=== PATIENT | female | born 1990 | race Caucasian/White ===

== ENCOUNTER → 2019-01-29 08:05 | Outpatient (CLI) | payer SELFPAY ==
[2018-12-26 11:04] VITALS: BMI 31.6
--- NOTE | 2019-01-29 08:15 | US_ITS ---
STUDY: SECOND AND THIRD TRIMESTER OBSTETRICAL ULTRASOUND REASON FOR EXAM: Female, 28 years old. Routine survey. LMP: September 08, 2018. TECHNIQUE: Transabdominal TECHNICAL QUALITY: Adequate. PRIOR ULTRASOUND: None. FINDINGS: There is a single intrauterine fetus. The fetus is in a cephalic presentation. There is demonstrated cardiac activity with a heart rate of 152 bpm. There is a normal amniotic fluid volume. The largest amniotic fluid pocket measures 4.5 cm x 3.7 cm. The amniotic fluid index (NATHAN) is within normal limits. The placenta is posterior in location and is not low lying. There are Grade 0 placental changes. The cervix measures 4.3 cm in length. The bilateral adnexal regions are normal. BIOMETRY: BPD: 5.1 cm: 21 weeks, 4 days HC: 19.52 cm: 21 weeks, 6 days AC: 17.38 cm: 22 weeks, 3 days FL: 3.75 cm: 22 weeks, 0 days CI: 79% FL/BPD: 74% FL/HC: FL/AC: 22% HC/AC: 1.12 age by current US: 22 weeks, 0 days. TITI by current US: June 04, 2019. Estimated weight: 475 grams, +/- 69 grams, 98 %. Age by LMP: 20 weeks, 3 days. TITI by LMP: June 15, 2019. ANATOMY: Gender: Cranium: Normal lateral ventricles. Normal choroid plexus. Normal cerebellum. Normal cisterna magna. Normal face, nose and lips. Chest: Normal 4-chamber heart. Abdomen/Pelvis: Normal diaphragm. Normal stomach. Normal abdominal wall. Normal cord insertion. Normal 3 vessel cord. Normal kidneys. Normal bladder. Spine: Normal cervical spine. Normal thoracic spine. Normal lumbar spine. Normal sacrum. Extremities: Normal bilateral upper extremities. Normal bilateral lower extremities. US/OB Anatomy Scan IMPRESSION: Single live intrauterine gestation with a mean gestational age of 22 weeks. Electronically Signed: Oscar Cuevas, at 9:20 EDT , Service support ,
[2019-01-29 23:11] LABS: Chlamydia Trachomatis by PCR Negative (Negative); Neisserai gonorrhoeae by PCR Negative (Negative); Probe Check PASS; Sample Adequacy Control PASS; Specimen Processing Control PASS
== END ==
PROVIDERS: Referring Provider Obstetrics & Gynecology; Visit Provider Obstetrics & Gynecology
DX: O09.90 Supervision of high risk pregnancy, unspecified, unspecified trimester (principal)
CPT/HCPCS: 76805; 87491; 87591

== ENCOUNTER → 2019-03-23 | Outpatient (CLI) | payer SELFPAY ==
[2019-03-23 14:38] VITALS: BMI 33.1
[2019-03-23 15:25] LABS: Absolute Lymphocyte Count 1.63 X10^3/ul (0.83-4.51); Absolute Neutrophil Count 6.2 X10^3/uL (2.0-7.7); Basophil# 0.02 X10^3/uL; Basophil% 0.2 % (0-1); Eosinophil# 0.08 X10^3/uL; Eosinophils% 0.9 % (0-5); Hematocrit 32.4 % (37-47); Lymphocyte # 1.63 X10^3/ul (4.0); Lymphocyte % 19.1 % (19-41); Mean Corpuscular Hgb 28.4 pg (27.0-32.0); Mean Corpuscular Volume 83.5 fL (81-99); Mean Platelet Vol. 9.7 fl (6.2-12.0); Monocyte# 0.58 X10^3/uL; Monocyte% 6.8 % (0-10); Neutrophil # 6.19 X10^3/uL (2.7-7.7); Neutrophil % 72.8 % (47-70); Platelet Count 159 K/mm3 (150-450); RBC Distribution Width CV 13.7 % (11.6-14.6); RBC Distribution Width SD 41.9 fl (35.1-43.9); Red Blood Count 3.88 M/mm3 (4.2-5.4); White Blood Count 8.5 K/mm3 (4.4-11.0)
[2019-03-23 15:27] LABS: POSITIVE COUNT NO; POSITIVE DIFFERENTIAL NO; POSITIVE MORPHOLOGY NO
[2019-03-23 15:38] LABS: Glucose Challenge Gest 1H 50g 135 mg/dL (70-140)
[2019-03-23 16:34] LABS: HIV - WCH Non-Reactive (Nonreactive); Rubella IgG 288.8 IU/mL
[2019-03-26 09:48] LABS: HEPATITIS B SURFACE AG Negative (Negative)
[2019-03-30 03:31] LABS: Rapid Plasmin Reagin (RPR) NONREACTIVE (NONREACTIVE)
== END | disposition home or self-care (01) ==
LOC: LAB 14:47
PROVIDERS: Referring Provider Obstetrics & Gynecology; Visit Provider Obstetrics & Gynecology
DX: O09.90 Supervision of high risk pregnancy, unspecified, unspecified trimester (principal); Z3A.28 28 weeks gestation of pregnancy
CPT/HCPCS: 36415; 82950; 85025; 86592; 86703; 86762; 86850; 86900; 87340

== ENCOUNTER → 2019-04-09 | Outpatient (CLI) | payer SELFPAY ==
[2019-03-23 14:38] VITALS: BMI 33.1
[2019-04-09 08:11] LABS: Glucose GTT-Gestation. Fasting 89 mg/dL (<105)
[2019-04-09 09:07] LABS: Glucose GTT-Gestational 1 Hr 158 mg/dL (<190)
[2019-04-09 10:47] LABS: Glucose GTT-Gestational 2 Hr 141 mg/dL (<165)
[2019-04-09 11:16] LABS: Glucose GTT-Gestational 3 Hr 86 L (<145)
[2019-04-09 18:20] LABS: Chlamydia Trachomatis by PCR Negative (Negative); Neisserai gonorrhoeae by PCR Negative (Negative); Probe Check PASS; Sample Adequacy Control PASS; Specimen Processing Control PASS
== END | disposition home or self-care (01) ==
PROVIDERS: Nurse Practitioner Women's Health; Referring Provider Obstetrics & Gynecology; Visit Provider Obstetrics & Gynecology
DX: O99.810 Abnormal glucose complicating pregnancy (principal); O09.93 Supervision of high risk pregnancy, unspecified, third trimester; Z3A.00 Weeks of gestation of pregnancy not specified
CPT/HCPCS: 36415; 82951; 82952; 87491; 87591

== ENCOUNTER → 2019-05-04 | Outpatient (CLI) | payer SELFPAY ==
[2019-05-04 09:36] VITALS: BMI 33.1
== END | disposition home or self-care (01) ==
LOC: LABSPEC 16:18
PROVIDERS: Referring Provider Obstetrics & Gynecology; Visit Provider Obstetrics & Gynecology
DX: O09.93 Supervision of high risk pregnancy, unspecified, third trimester (principal); Z3A.00 Weeks of gestation of pregnancy not specified
CPT/HCPCS: 87086; 87088

== ENCOUNTER → 2019-05-18 | Outpatient (CLI) | payer SELFPAY ==
[2019-05-18 10:11] VITALS: BMI 33.1
== END | disposition home or self-care (01) ==
LOC: LABSPEC 15:37
PROVIDERS: Referring Provider Nurse Practitioner Women's Health; Visit Provider Nurse Practitioner Women's Health
DX: Z34.90 Encounter for supervision of normal pregnancy, unspecified, unspecified trimester (principal); Z3A.36 36 weeks gestation of pregnancy
CPT/HCPCS: 87081

== ENCOUNTER 2019-06-01 00:40 | Inpatient (IN) | payer SELFPAY ==
[2019-01-29 13:03] VITALS: BMI 31.6
[2019-05-18 10:11] VITALS: BMI 33.1
[2019-06-01 01:17] VITALS: BMI 36.6
[2019-06-01] MEDS: Lactated Ringers 1,000 ML 999 ML IV (01:30)
[2019-06-01 01:44] LABS: Absolute Lymphocyte Count 1.57 X10^3/uL (0.83-4.51); Absolute Neutrophil Count 6.1 X10^3/uL (2.0-7.7); Basophil# 0.02 X10^3/uL; Basophil% 0.2 % (0-1); Eosinophil# 0.06 X10^3/uL; Eosinophils% 0.7 % (0-5); Hematocrit 35.2 % (37-47); Hemoglobin 12.3 g/dL (12.0-15.0); Lymphocyte # 1.57 X10^3/ul (4.0); Lymphocyte % 18.7 % (19-41); Mean Corp Hgb Conc 34.9 g/dL (32-36); Mean Corpuscular Hgb 29.1 pg (27.0-32.0); Mean Corpuscular Volume 83.2 fL (81-99); Mean Platelet Vol. 10.2 fl (6.2-12.0); Monocyte# 0.65 X10^3/uL; Monocyte% 7.7 % (0-10); NRBC Flagged by Analyzer 0 % (0-5); Neutrophil # 6.06 X10^3/uL (2.7-7.7); Neutrophil % 72.2 % (47-70); Platelet Count 146 K/mm3 (150-450); RBC Distribution Width CV 13.7 % (11.6-14.6); RBC Distribution Width SD 41.7 fl (35.1-43.9); Red Blood Count 4.23 M/mm3 (4.2-5.4); White Blood Count 8.4 K/mm3 (4.4-11.0)
[2019-06-01 01:49] LABS: ROM Internal Control Test YES-OK TO RESULT pt. (Internal QC); ROM Patient Test POSITIVE (Negative)
[2019-06-01] MEDS: Lactated Ringers 1,000 ML 50 ML IV (02:44)
--- NOTE | 2019-06-01 02:52 | PCM.HP.OB ---
- Problem List (1) Active labor at term Status: Acute (2) History of delivery Status: Acute Comment: planning TOLAC (3) Anxiety Status: Acute Comment: no meds (4) History of delivery Status: Acute Comment: declined progesterone injections (5) Status: Acute Qualifiers: Comment: declined genetic screening (6) Supervision of high risk in third trimester Status: Acute Comment: TITI 06/15/19 boy Quita Charles domenico History Date of Admission: 06/01/19 Final TITI: 06/15/19 Gestational age: 38 Weeks and 0 Days History of this : This is a 28 year-old, , at 38 weeks gestational age presents IAL SROM 5 cm. she is wanting a TOLAC. she denies any vb admits good fm and regular ctx. Medical History: Medical History (Last Reviewed 05/18/19 @ 10:11 by Jaimie Bustamante) Thyroid disease E07.9 Surgical History: Surgical History (Last Reviewed 05/18/19 @ 10:11 by Jaimie Bustamante) History of delivery, antepartum Onset Date: ~2014 O34.219 Breech Allergies No Known Allergies Allergy (Verified 06/01/19 01:21) Home Medications: Home Medications thyroid (pork) 60 mg tablet 60 mg PO DAILY 12/26/18 Smoking Status: Never smoker Alcohol: None Number of Fetus(es): 1 Heart Tracin moderate variability reactive no decelerations category I tracing [place]: regular History Past Pregnancies: Past Pregnancies Pregancy History 7 Elective abortions Hx Para 3 Spontaneous abortions Hx # Term Pregnancies Ectopic pregnancies Hx # Pregnancies 1 Multiple births # of living children 2 Past Pregnancies Del. Date Name GA/Weeks Outcome Route Bth Weight Infant Gen Labor Lgth Anesthesia Del Locatn Provider FOB Unknown 07/2013 Pattie 21 live - Male [facility] Unknown 12/2014- Ruddy 36 live - 5pounds 10oz Female spinal [facility] Unknown 09/2016- Quita 38 live - full term 6pounds 14oz Female epidural [place] Delivery Date: On 12/26/18 @ 11:12 Sandra Britton demise Delivery Date: On 12/26/18 @ 11:18 Sandra Britton Breech; progesterone injections Delivery Date: On 12/26/18 @ 11:18 Sandra Britton Progesterone injections Labs: Mom's Labs & Results 06/01/19 06/01/19 06/01/19 01:09 01:30 01:30 WBC 8.4 RBC 4.23 Hgb 12.3 Hct 35.2 L MCV 83.2 MCH 29.1 MCHC 34.9 RDW Std Deviation 41.7 RDW Coeff of Bhavani 13.7 Plt Count 146 L MPV 10.2 Immature Gran % (Auto) 0.500 Neut % (Auto) 72.2 H Lymph % (Auto) 18.7 L [place] % (Auto) 7.7 Eos % (Auto) 0.7 Baso % (Auto) 0.2 Absolute Neuts (auto) 6.1 Absolute Lymphs (auto) 1.57 Nucleated RBC % 0 Vag Amniotic Fld Detect POSITIVE H Blood Type Pending Antibody Screen Pending Course Did the patient receive Yes care? Labs Blood Type: B RH: POSITIVE RPR/VDRL/Syphilis Nonreactive Rubella status Immune HbSAg Negative Date Done: 03/05/19 Chlamydia Negative Gonorrhea Negative HIV/AIDS Non-Reactive Group B Strep: Negative Current Obstetrical History Gestational Diabetes No Incompetent Cervix No Infertility No IUGR No Macrosomia No Hypertension/Pre-eclampsia No Placenta Previa/Abruption No PTL/PROM No Uterine anomaly No Oligohydramnios No Polyhydramnios No Multiple gestation No Past Medical History Asthma No Diabetes No Hypertension No Heart disease No Mitral valve prolapse No Neurologic/Seizure disorder/ No Migraines Kidney disease No Liver disease No Varicosities No Clotting disorders/Hx of DVT No Thyroid Dysfunction Yes: hyperthyroid per patient Other medical diseases No Psychiatric disorders Yes: anxiety Major trauma No Abnormal PAP smear No Sleep apnea No Social History Marital Status: Alleged father Domenico Hx Smoking No Smoking Status Never smoker How long have you used pt denies substances (years)? Expected Delivery Method: Review of Systems Constitutional: Denies: Fever, Malaise Eyes: Denies: Blurred vision, Vision Change HEENT: Denies: Head Aches, Visual Changes Cardiovascular: Denies: Chest Pain, Palpitations Respiratory: Denies: Cough, Shortness of Breath, Wheezing Gastrointestinal: Denies: Abdominal Pain, Diarrhea, Nausea, Vomiting Genitourinary: Denies: Dysuria, Hematuria Musculoskeletal: Denies: Joint Pain, Muscle pain Skin: Denies: Lesions, Rash Neurological: Denies: Blurred vision, Focal weakness, Headaches Psychiatric: Denies: Anxiety, Depression Endocrine: Denies: Heat/ Cold Intolerance Hematologic/ Lymphatic: Denies: Easy Bruising, Easy Bleeding Physical Exam General: Alert, Cooperative, No apparent distress HEENT: Atraumatic, Normocephalic. Negative for: Thyromegaly, Lymphadenopathy Cardiovascular: Regular rate Lungs: Normal air movement Abdomen: Soft, Non Tender, Gravid Neurological: Deep Tendon Reflexes 2+/4 and Symmetrical, Neuro grossly intact. Negative for: Clonus RADIOLOGY TECH: Normal external genitalia. Negative for: Vulvar lesions Estimated gestational size: Appropriate for gestational size Presentation: Cephalic Cervix Dilation (cm): 5 Assessment/Plan All Active Problems (Last Reviewed 05/18/19 @ 10:11 by Jaimie Bustamante) Active labor at term (Acute) History of delivery (Acute) Anxiety (Acute) History of delivery (Acute) (Acute) Supervision of high risk in third trimester (Acute) H/O section (Resolved) History of delivery (Resolved ~2012) (Resolved) Supervision of high risk , antepartum (Resolved) This is a 28 year-old, at 38 weeks gestational age presents SROM IAL. Patient presents plan TOLAC expectant management. Pain management: Plans epidural. GBS negative. Management of any complications: None I have reviewed the [facility] and made any clinically relevant updates.
[2019-06-01] MEDS: fentaNYL-bupivacaine (epidural) 100 ML BAG EPIDURAL (03:16)
--- NOTE | 2019-06-01 04:03 | PCM.OPRPT ---
Problem List (1) Active labor at term Status: Acute (2) History of delivery Status: Acute Comment: planning TOLAC (3) Anxiety Status: Acute Comment: no meds (4) History of delivery Status: Acute Comment: declined progesterone injections (5) Status: Acute Qualifiers: Comment: declined genetic screening (6) Supervision of high risk in third trimester Status: Acute Comment: TITI 06/15/19 boy SANTOS Quita Fox domenico (7) (vaginal after ) Status: Acute Vaginal Delivery Maternal Presentation: Active Labor ial tolac Amniotic Membrane Rupture Type: Spontaneous at home Amniotic Fluid Description: Clear Final TITI: 06/15/19 Gestational age: 38 Weeks and 0 Days Date of Procedure: 06/01/19 Pre-Operative Diagnosis: ial Post-Operative Diagnosis: same Surgery/ Procedure Performed: Spontaneous Vaginal Delivery, - - Type of Anesthesia: Epidural Description of Procedure: Patient began pushing and delivered the head in the BAUTISTA presentation. The head was delivered atraumatically. The anterior and posterior shoulders delivered without complication followed by the rest of the and the infant was placed on the maternal abdomen. Delayed cord clamping was employed for approximately 60 seconds. Cord was clamped and cut and gentle traction was applied to the cord and the placenta delivered spontaneously immediately following it was noted to be intact with three-vessel cord. The perineum and vagina were inspected and noted to have a second-degree perineal laceration was repaired in the usual fashion with 3-0 Vicryl repeat. EBL was 300 cc. Patient and infant tolerated delivery well. Presentation: BAUTISTA Placental Delivery Description: Spontaneous Placenta Disposition: [facility] Cord Vessel Description: 3 Vessels Estimated Blood Loss: 300 A gender: Male Laceration: Perineal Extension/lac, 2nd degree Medications given after delivery: IV Pitocin Multi Select Codes - Urinary/Genital Urinary/Genital CPT Codes: 92765 delivery [facility]
[2019-06-01] MEDS: Oxytocin 30 units/NS 500 ml 30 UNITS/500 ML IV.SOLN 334 UNITS IV (06:20)
[2019-06-01] MEDS: Oxytocin 30 units/NS 500 ml 30 UNITS/500 ML IV.SOLN 167 UNITS IV (06:50)
--- NOTE | 2019-06-01 10:40 | NURSING ---
Epidural catheter taken out, blue tip intact.
[2019-06-01] MEDS: Naproxen 250 MG Tablet 500 MG PO ×2 (11:33→20:34)
[2019-06-01 12:10] VITALS: BP 90/53; PULSE 78; RESP 16; TEMP 37
[2019-06-01] MEDS: Thyroid 60 MG Tablet PO (12:20)
[2019-06-01 16:40] VITALS: BP 102/63; PULSE 89; RESP 16; TEMP 36.8
[2019-06-01 19:25] VITALS: BP 115/67; PULSE 87; RESP 16; TEMP 36.7
[2019-06-01] MEDS: Senna/Docusate Sodium 1 Tablet PO (20:39)
[2019-06-01 23:40] VITALS: BP 112/66; PULSE 78; RESP 18; TEMP 36.4
--- NOTE | 2019-06-02 04:40 | DCINST_ITS ---
Discharge Diet: No Restrictions Discharge Activity: Return to Normal Activity, May not drive while taking narcotic pain medications., May Shower May resume sexual activity in: 4-6 weeks Call your doctor if your incision/area has: Continuous Slow Oozing, Sudden Increased Bleeding, Increased Pain/ Swelling, Increased Redness, Foul Smelling Discharge Additional Instructions: If you experience any of the following, contact your healthcare provider. * Bleeding that soaks a pad every hour for 2 hours * Fever 100.4 or higher * Unrelieved incision or abdominal pain * Swelling, redness, discharge or bleeding from your incision or episiotomy site * Your incision begins to separate * Problems urinating (including inability to urinate or burning while urinating). * Visual changes * Severe headache * Flu-like symptoms * Pain or redness in one of both of your breasts * Pain, warmth, tenderness or swelling in your legs, especially the calf area * Frequent nausea and vomiting * Symptoms of depression or anxiety If you experience any of the following, call 911 or go to the nearest Emergency Room. * Chest pain * Problems breathing * Seizure activity * Partial or complete paralysis of a body part, slurred speech, weakness or drooping of the face, or a sudden inability to walk or hold your balance Allergies/Adverse Reactions: Allergies No Known Allergies Allergy (Verified 06/01/19 01:21) Medications to take at Discharge thyroid (pork) 60 mg tablet 60 mg PO DAILY 12/26/18 Please Follow Up With: Arlene Schultz MD - [phone] When: Call to make an appointment with your doctor in 6 weeks. If you had elevated Blood pressure or 4th degree laceration you will need to be seen in 2 weeks. Primary Care Physician: Care Physician,No Primary [Primary Care Provider] - Test Results: Test results from this visit will be discussed in further detail at your follow- up appointment, if applicable.
--- NOTE | 2019-06-02 04:40 | PCM.DCVAG ---
Discharge Diet: No Restrictions Discharge Activity: Return to Normal Activity, May not drive while taking narcotic pain medications., May Shower May resume sexual activity in: 4-6 weeks Call your doctor if your incision/area has: Continuous Slow Oozing, Sudden Increased Bleeding, Increased Pain/ Swelling, Increased Redness, Foul Smelling Discharge Additional Instructions: If you experience any of the following, contact your healthcare provider. Bleeding that soaks a pad every hour for 2 hours Fever 100.4 or higher Unrelieved incision or abdominal pain Swelling, redness, discharge or bleeding from your incision or episiotomy site Your incision begins to separate Problems urinating (including inability to urinate or burning while urinating). Visual changes Severe headache Flu-like symptoms Pain or redness in one of both of your breasts Pain, warmth, tenderness or swelling in your legs, especially the calf area Frequent nausea and vomiting Symptoms of depression or anxiety If you experience any of the following, call 911 or go to the nearest Emergency Room. Chest pain Problems breathing Seizure activity Partial or complete paralysis of a body part, slurred speech, weakness or drooping of the face, or a sudden inability to walk or hold your balance Allergies/Adverse Reactions: Allergies No Known Allergies Allergy (Verified 06/01/19 01:21) Medications to take at Discharge thyroid (pork) 60 mg tablet 60 mg PO DAILY 12/26/18 Please Follow Up With: Arlene Schultz MD - [phone] When: Call to make an appointment with your doctor in 6 weeks. If you had elevated Blood pressure or 4th degree laceration you will need to be seen in 2 weeks. Primary Care Physician: Care Physician,No Primary [Primary Care Provider] - Test Results: Test results from this visit will be discussed in further detail at your follow-up appointment, if applicable.
[2019-06-02 04:50] VITALS: BP 111/63; PULSE 78; RESP 18; TEMP 36.6
[2019-06-02] MEDS: Thyroid 60 MG Tablet PO (04:58)
[2019-06-02] MEDS: Naproxen 250 MG Tablet 500 MG PO (06:22)
--- NOTE | 2019-06-02 07:01 | PCM.PN.OB ---
Patient Problems: Active and Suspected Problems (Last Reviewed 05/18/19 @ 10:11 by Jaimie Bustamante) Active labor at term (Acute) (vaginal after ) (Acute) Subjective: doing well no complaints pain controlled no CP SOB N V ambulating well tolerating po lochia moderate, going well - Physical Exam Vital Signs Temp Pulse Resp BP 97.8 F 78 18 111/63 06/02/19 04:50 06/02/19 04:50 06/02/19 04:50 06/02/19 04:50 Oxygen Delivery Method Room Air Weight: 213 lb 2.992 oz Body Mass Index (BMI) 36.6 Intake and Output for Last 24 Hours 05/31/19 06/01/19 06/02/19 23:59 23:59 23:59 Intake Total 2029 / 2029 Output Total 1250 / 1250 Balance 780 / 780 Medical Necessity - Tobacco Use Smoking Status: Never smoker Assessment/Plan All Active Problems (Last Reviewed 05/18/19 @ 10:11 by Jaimie Bustamante) Active labor at term (Acute) (vaginal after ) (Acute) History of delivery (Acute) Anxiety (Acute) History of delivery (Acute) (Acute) Supervision of high risk in third trimester (Acute) H/O section (Resolved) History of delivery (Resolved ~2012) (Resolved) Supervision of high risk , antepartum (Resolved) s/p PPD # 1 1. routine post delivery care 2. breast feeding- support given 3. rh positive 4. rubella immune
[2019-06-02 08:40] VITALS: BP 120/65; PULSE 85; RESP 16; TEMP 36.6
[2019-06-02 13:35] VITALS: BP 118/69; PULSE 91; RESP 16; TEMP 36.6
--- NOTE | 2019-06-07 16:42 | NURSING ---
Follow up phone call done mother denies needs or questions, was satisfied with her care
== END 2019-06-02 15:20 | disposition home or self-care (01) | DRG 807 ==
PROVIDERS: Admitting Provider Obstetrics & Gynecology; Referring Provider Obstetrics & Gynecology; Visit Provider Obstetrics & Gynecology
DX: O34.219 Maternal care for unspecified type scar from previous cesarean delivery (principal); Z37.0 Single live birth; O99.284 Endocrine, nutritional and metabolic diseases complicating childbirth; E07.9 Disorder of thyroid, unspecified; Z3A.38 38 weeks gestation of pregnancy; Z79.899 Other long term (current) drug therapy; O70.1 Second degree perineal laceration during delivery
CPT/HCPCS: 59025; 59050; 84112; 85025; 86850; 86900; 99218; J7120; G0378

== ENCOUNTER → 2019-07-16 17:21 | Outpatient (CLI) | payer SELFPAY ==
[2019-07-16 13:42] VITALS: BMI 36.6
[2019-07-19 14:37] LABS: HPV Reflexed? NOT INDICATED
== END ==
PROVIDERS: Referring Provider Obstetrics & Gynecology; Visit Provider Obstetrics & Gynecology
DX: Z12.4 Encounter for screening for malignant neoplasm of cervix (principal)
CPT/HCPCS: 88175; G0145

== ENCOUNTER 2021-07-26 06:35 | Outpatient (CLI) | payer OTHER, SELFPAY ==
[2021-07-26 06:50] VITALS: PULSE 103; O2SAT 97
[2021-07-26 06:51] VITALS: BP 121/77; PULSE 99; TEMP 36.2
[2021-07-26 07:24] VITALS: BMI 34.9
--- NOTE | 2021-07-26 10:07 | OB.TRI.NOTE ---
HPI - General HPI Narrative GUADALUPE DUQUE, is a 31 F who presents with irregular ctx's. Not painful or regular. No lof, vb. Good FM. Maternal Data Information TITI Calculator Estimated Delivery Date Method Current WG Current Estimate 08/22/21 LMP (Certain) 36w 1d PFSH PFSH Medical History (Updated 07/26/21 @ 10:[address] Chika Gallardo, DO) Thyroid disease Home Medications prenat.vits,fito,[id number] [ Vitamin] 1 tab PO DAILY 07/26/21 [History Last Taken 07/25/21 12:00] Allergy/AdvReac Type Severity Reaction Status Date / Time No Known Allergies Allergy Verified 07/26/21 07:35 Surgical History History of delivery, antepartum (~2014) Social History (Updated 07/16/19 @ 14:[address] 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 Date Name GA/Weeks Outcome Route Bth Weight Gen Labor Lgth Anesthesia Del Locatn Provider FOB Unknown 07/2013 Linalejandro 21 live - Male [facility] Unknown 12/2014- Ruddy 36 live - 5pounds 10oz Female spinal [facility] Unknown 09/2016- Quita 38 live - full term 6pounds 14oz Female epidural [place] 06/01/19 38 live - full term Male epidural [facility] Delivery Date: demise Sandra Britton Delivery Date: Breech; progesterone injections Sandra Britton Delivery Date: Progesterone injections Sandra Britton Delivery Date: 06/01/19 2 degree laceration; uncomplicated delivery Sandra Britton NST FHR Rate Baby A Baseline: 145 Variability:: Moderate Accelerations:: 15 x 15 Decelerations:: Variable (isolated) NST Reactive:: Yes Uterine Activity:: No regular ctx's Assessment & Plan (1) 36 weeks gestation of : PLAN: Patient has been receiving care with a barrel cutter Ivanna Dickson. She has not received care through [facility]. She reports her barrel cutter wanted her assessed for PTL given irregular ctx's at 36 weeks. Cvx 3 cm and unchanged after 1 hour. Patient reports contractions are mild and irregular. Likely not in PTL at this time. Patient considering labs and GBS. Given she is a TOLAC, I recommend coming into our office this week for an ultrasound, visit, labs and GBS swab and discussion of delivery plan. Recommend that she deliver at [facility] and not with sewer bricklayer. Patient is undecided on where or who she would like to deliver with. She delivered her last baby with Dr. Schultz and is considering calling her office. Will have our office call her tomorrow for follow up. If she is agreeable to scheduling a visit with us and delivering with [facility] and [facility], will schedule appointment. (2) History of delivery: COMMENT: planning TOLAC (3) Uterine contractions:
== END 2021-07-26 08:35 | disposition home or self-care (01) ==
LOC: WPOUT 06:42 → WP 06:42
PROVIDERS: Referring Provider Obstetrics & Gynecology; Visit Provider Obstetrics & Gynecology
DX: O47.03 False labor before 37 completed weeks of gestation, third trimester (principal); Z3A.36 36 weeks gestation of pregnancy; Z98.891 History of uterine scar from previous surgery
CPT/HCPCS: 59025; 59050; 99218; G0378

== ENCOUNTER 2021-08-01 19:00 | Inpatient (IN) | payer SELFPAY ==
[2021-08-01] VITALS (16 sets, daily range): BP systolic 115–152; BP diastolic 60–85; PULSE 77–100; TEMP 36.1–36.4; O2SAT 84–98; BMI 35.0
[2021-08-01 19:24] LABS: ROM Internal Control Test YES-OK TO RESULT pt. (Internal QC)
[2021-08-01 19:26] LABS: ROM Patient Test POSITIVE (Negative)
[2021-08-01] MEDS: Lactated Ringers 1,000 ML 50 ML IV (19:50)
--- NOTE | 2021-08-01 20:07 | PCM.HP.OB ---
HPI - General General Date of Admission: 08/01/21 HPI Narrative GUADALUPE DUQUE, is a 31 F at 37/0 who presents with rupture of membranes Maternal Data Information TITI Calculator Estimated Delivery Date Method Current WG Current Estimate 08/22/21 LMP (Certain) 37w 0d PFSH PFSH Medical History (Updated 08/01/21 @ 20:[address] Krista Payne MD) Thyroid disease Home Medications prenat.vits,fito,abc-[id number] [ Vitamin] 1 tab PO DAILY 07/26/21 [History Last Taken 08/01/21] Allergy/AdvReac Type Severity Reaction Status Date / Time No Known Allergies Allergy Verified 07/26/21 07:35 Surgical History History of delivery, antepartum (~2014) Social History (Updated 07/16/19 @ 14:[address] 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 Date Name GA/Weeks Outcome Route Bth Weight Gen Labor Lgth Anesthesia Del Locatn Provider FOB Unknown 07/2013 Pattie 21 live - Male [facility] Unknown 12/2014- Ruddy 36 live - 5pounds 10oz Female spinal [facility] Unknown 09/2016- Quita 38 live - full term 6pounds 14oz Female epidural [place] 06/01/19 38 live - full term Male epidural [facility] Delivery Date: demise Sandra Britton Delivery Date: Breech; progesterone injections Sandra Britton Delivery Date: Progesterone injections Sandra Britton Delivery Date: 06/01/19 2 degree laceration; uncomplicated delivery Sandra Britton NST FHR Rate Baby A Baseline: 140 Variability:: Moderate Accelerations:: 15 x 15 Decelerations:: None NST Reactive:: Yes FHR Category:: Category I Uterine Activity:: q3-6 min ROS Eyes Eyes: Reports systems reviewed and no addt'l complaints, except as documented ENT HEENT: Reports systems reviewed and no addt'l complaints, except as documented Cardiovascular Cardiovascular: Reports systems reviewed and no addt'l complaints, except as documented Respiratory/Chest Respiratory/Chest: Reports systems reviewed and no addt'l complaints, except as documented Gastrointestinal Gastrointestinal: Reports systems reviewed and no addt'l complaints, except as documented Genitourinary Genitourinary: Reports systems reviewed and no addt'l complaints, except as documented Musculoskeletal Musculoskeletal: Reports systems reviewed and no addt'l complaints, except as documented Integumentary Integumentary: Reports systems reviewed and no addt'l complaints, except as documented Neurologic Neurologic: Reports systems reviewed and no addt'l complaints, except as documented Psychiatric Psychiatric: Reports systems reviewed and no addt'l complaints, except as documented Endocrine Endocrinology: Reports systems reviewed and no addt'l complaints, except as documented Hematologic/Lymphatic Hematologic/Lymphatic: Reports systems reviewed and no addt'l complaints, except as documented Allergic/Immunologic Allergic/Immunologic: Reports systems reviewed and no addt'l complaints, except as documented Vital Signs Vital Signs Vital Signs: 08/01/21 19:49 08/01/21 20:01 Temperature 97.5 F L Temperature Source Temporal Pulse Rate 90 Blood Pressure 128/82 H BP Systolic 128 BP Diastolic 82 Weight Weight: 204 lb 5.896 oz Body Mass Index (BMI) 35.0 Physical Exam Const alert, oriented x3, no apparent distress, average body habitus, healthy appearing and well nourished HEENT normocephalic and moist oral mucous membranes Head and Scalp: atraumatic Eyes PERRL and EOMs intact bilaterally Neck full ROM Resp normal respiratory effort, no retractions and no use of accessory muscles Cardio regular rate and regular rhythm GI soft to palpation, non-tender and non-distended Extremity normal to inspection and full ROM Skin no rashes or lesions noted Neuro no focal motor deficits and no sensory deficits noted Psych mental status grossly normal, affect normal, speech normal and activity/motor behavior normal Labs Labs Labs: Blood Type B POSITIVE Antibody Screen NEGATIVE Hct 35.2 % (37-47) L Hgb 12.3 g/dL (12.0-15.0) Obstetrics US Rubella IgG Antibody 288.8 IU/mL Hep Bs Antigen Negative (Negative) HIV 1&2 Antibody Non-Reactive (Nonreactive) C.trachomatis DNA (PCR) Negative (Negative) Glucose 1 Hr 50 gm 135 mg/dL (70-140) Rhogam given: No Assessment & Plan (1) (vaginal after ): (2) History of delivery: COMMENT: planning TOLAC (3) Anxiety: COMMENT: no meds (4) History of delivery: COMMENT: declined progesterone injections (5) : COMMENT: declined genetic screening (6) Supervision of high risk in third trimester: (7) Full-term premature rupture of membranes: PLAN: Patient presents IAL, plan expectant management for , pitocin if needed. Pain management: desires natural but open to epidural. GBS unknown - rapid test pending. Management of any complications: none I have reviewed the [facility] and made any clinically relevant updates.
[2021-08-01] MEDS: Oxytocin 30 units/NS 500 ml 30 UNITS/500 ML IV.SOLN IV (20:10)
[2021-08-01 20:20] LABS: Absolute Lymphocyte Count 1.37 X10^3/uL (0.83-4.51); Absolute Neutrophil Count 4.8 X10^3/uL (2.0-7.7); Basophil# 0.03 X10^3/uL; Basophil% 0.4 % (0-1); Eosinophil# 0.03 X10^3/uL; Eosinophils% 0.4 % (0-5); Hematocrit 36.2 % (37-47); Hemoglobin 12.3 g/dL (12.0-15.0); Lymphocyte # 1.37 X10^3/ul (0.83-4.51); Lymphocyte % 20.2 % (19-41); Mean Corpuscular Volume 82.5 fL (81-99); Monocyte% 7.4 % (0-10); NRBC Flagged by Analyzer 0 % (0-5); Neutrophil # 4.83 X10^3/uL (2.7-7.7); Neutrophil % 71.5 % (47-70); Platelet Count 162 K/mm3 (150-450); RBC Distribution Width CV 13.7 % (11.6-14.6); RBC Distribution Width SD 40.6 fl (35.1-43.9); Red Blood Count 4.39 M/mm3 (4.2-5.4); White Blood Count 6.8 K/mm3 (4.4-11.0)
[2021-08-01 21:19] LABS: Bacteria 0 SEEN /hpf (None Seen); Mucous, Urine 0 SEEN /hpf (<or=2+); White Blood Cells 0 SEEN /hpf (0-5)
[2021-08-01 21:20] LABS: Color, Urine Yellow (Yellow); Glucose, Dipstick Normal (Normal); Leukocyte Esterase-Dipstick Negative /ul (Negative); Nitrite-Dipstick Negative (Negative); Occult Blood-Urine 250 /ul (Negative); Protein-Dipstick Negative (Negative); Urine Bilirubin Dipstick Negative (Negative); Urine Clarity Sl. Cloudy (Clear); Urine Urobilinogen Normal (Normal)
[2021-08-01 21:38] LABS: Ketone-Dipstick 150 mg/dl (Negative)
[2021-08-01 21:41] LABS: Amorphous Sediment 1+ URATE; Red Blood Cells-Urine 25-50 SEEN /hpf (0-5); Squamous Epithelial Cells - UA 0-5 SEEN /hpf (5-10)
[2021-08-01 21:44] LABS: Amphetamine Urine VISTA NEGATIVE (<1000 ng/mL); Barbiturate Urine VISTA NEGATIVE (< 200 ng/mL); Benzodiazepine Urine VISTA NEGATIVE (< 200 ng/mL); Cocaine Urine VISTA NEGATIVE (< 300 ng/mL); Ecstacy Urine VISTA NEGATIVE (< 500 ng/mL); Methadone Urine VISTA NEGATIVE (< 300 ng/mL); PCP Urine VISTA NEGATIVE (< 25 ng/mL); THC Urine VISTA NEGATIVE (< 50 ng/mL); Vista UDS pH Range 6
[2021-08-01] MEDS: Lactated Ringers 500 ML 999 ML IV (21:45)
[2021-08-01 22:19] LABS: HIV - WCH Non-Reactive (Nonreactive); Hepatitis B Surface Antigen Non-Reactive (Nonreactive); Hepatitis C Antibody Non-Reactive (Nonreactive)
[2021-08-01] MEDS: fentaNYL-bupivacaine (epidural) 100 ML BAG EPIDURAL (22:25)
[2021-08-01] MEDS: Oxytocin 30 units/NS 500 ml 30 UNITS/500 ML IV.SOLN 334 UNITS IV (22:50)
--- NOTE | 2021-08-01 23:08 | EX.PCM.OBRPT ---
Assessment & Plan (1) (vaginal after ): (2) Supervision of high risk in third trimester: (3) History of delivery: COMMENT: planning TOLAC (4) Active labor at term: Maternal Data Information TITI Calculator Estimated Delivery Date Method Current WG Current Estimate 08/22/21 LMP (Certain) 37w 0d Vaginal Delivery Maternal Presentation Maternal Presentation: Spontaneous Rupture of Membranes Maternal Presentation: 31-year-old G8, P4 at 37 weeks gestation admitted for spontaneous rupture of membranes. She was augmented with Pitocin. Medical Reason for Induction: Premature Rupture of Membranes Operative Information Date of Procedure: 08/01/21 Pre-Operative Diagnosis: Term , history of , PROM Post-Operative Diagnosis: Same, Surgery / Procedure Performed: Type of Anesthesia: Local with 1% Lidocaine Estimated Blood Loss: 200 Findings Description of Procedure: Patient began pushing and delivered the head in the BAUTISTA presentation. The head was delivered atraumatically and no nuchal cord was noted. The anterior and posterior shoulders delivered without complication followed by the rest of the and the infant was placed on the maternal abdomen. Delayed cord clamping was employed for approximately 60 seconds. Cord was clamped and cut and gentle traction was applied to the cord and the placenta delivered spontaneously immediately following it was noted to be intact with three-vessel cord. The perineum and vagina were inspected and a midline second-degree perineal laceration was noted instilled with 1% lidocaine then repaired in the standard fashion using 3-0 Vicryl Rapide suture. EBL was 200 cc. Patient and infant tolerated delivery well. Presentation: Vertex Amniotic Membrane Rupture Type: Spontaneous Amniotic Fluid Description: Clear Placental Delivery Description: Spontaneous Placenta Disposition: [facility] Cord Vessel Description: 3 Vessels Cord Entanglement: None A Gender: Male (1 minute): 9 (5 minute): 9 Delayed Cord Clamping: Yes Post Vaginal Delivery Medications Given After Delivery: IV Pitocin Episiotomy Description: None Laceration: Midline, Perineal Extension/lac and 2nd degree Complication Complications: None Procedures Urinary/Genital [id number]: [id number] Vaginal Delivery [facility]
--- NOTE | 2021-08-01 23:13 | PCM.DC ---
Discharge Instructions Diet Discharge Diet: No restrictions Activity Discharge Activity: Return to Normal Activity, May Not Drive (while taking narcotic pain medications.) and May Shower May resume sexual activity in: 4-6 weeks Dressing / Incision Call your doctor if your incision/area has: Continuous Slow Oozing, Sudden Increased Bleeding, Increased Pain/ Swelling, Increased Redness and Foul Smelling Discharge Follow Up Care When: Call to make an appointment with your doctor in 6 weeks. If you had elevated Blood Pressure or 4th degree laceration you will need to be seen in 2 weeks. Test Results: Test results from this visit will be discussed in further detail at your follow-up appointment, if applicable. Discharge Plan Admission Admit Date/Time: 08/01/21 19:00 Attending Provider: Krista Payne Primary Care Provider: Care Physician,Karmen Primary Discharge Orders/Prescriptions Prescriptions: New ibuprofen 800 mg tablet 800 mg PO Q8H PRN (Reason: pain) Qty: 60 RF: 1 Continued prenat.vits,fito,[id number] Tablet 1 tab PO DAILY RF: 0 Referrals / Follow Up: Care Physician,No Primary [Primary Care Provider] -
[2021-08-01 23:19] LABS: Chlamydia Trachomatis by PCR Negative (Negative); Neisserai gonorrhoeae by PCR Negative (Negative); Probe Check PASS; Sample Adequacy Control PASS; Specimen Processing Control PASS
[2021-08-02] VITALS (10 sets, daily range): BP systolic 101–125; BP diastolic 55–81; PULSE 44–108; RESP 16; TEMP 36.6–36.8
[2021-08-02] MEDS: Ibuprofen 600 MG Tablet PO ×2 (00:03→11:03)
[2021-08-02 00:25] LABS: Group B Strep DNA By PCR Negative (Negative); Internal Control PASS; Probe Check PASS; Specimen Processing Control PASS
[2021-08-02] MEDS: 0.9% Saline Lock 10 ML Syringe IV (01:50)
--- NOTE | 2021-08-02 08:46 | PN.OBGYN_ITS ---
Subjective Subjective Patient doing well without complaints. Tolerating PO. Ambulating and voiding without difficulty. Breast feeding well. Denies chest pain, shortness of breath, calf pain/swelling, fevers, chills, lightheadedness. Objective Data Objective Data Vital Signs: Vital Signs Temp Pulse Resp BP Pulse Ox 97.9 F 83 16 101/64 98 08/02/21 08:01 08/02/21 08:01 08/02/21 08:01 08/02/21 08:01 08/01/21 22:32 Oxygen Delivery Method Room Air Weight: 204 lb 5.896 oz Body Mass Index (BMI) 35.0 Intake & Output: Intake and Output for Last 24 Hours 07/31/21 08/01/21 08/02/21 23:59 23:59 23:59 Intake Total 946.50 / 946.50 333 / 333 Output Total 300 / 300 Balance 946.50 / 946.50 33 / 33 Lab / Micro Data Result Diagrams: 08/01/21 19:50 Labs: Laboratory Results - last 24 hr 08/01/21 19:00: Vag Amniotic Fld Detect POSITIVE H 08/01/21 19:50: WBC 6.8, RBC 4.39, Hgb 12.3, Hct 36.2 L, MCV 82.5, MCH 28.0, MCHC 34.0, RDW Std Deviation 40.6, RDW Coeff of Bhavani 13.7, Plt Count 162, MPV 11.0, Immature Gran % (Auto) 0.100, Neut % (Auto) 71.5 H, Lymph % (Auto) 20.2, [place] % (Auto) 7.4, Eos % (Auto) 0.4, Baso % (Auto) 0.4, Absolute Neuts (auto) 4.8, Absolute Lymphs (auto) 1.37, Nucleated RBC % 0 08/01/21 19:50: Blood Type B POSITIVE, Antibody Screen NEGATIVE 08/01/21 19:50: Hep Bs Antigen Non-Reactive, Hepatitis C Antibody Non-Reactive, HIV 1&2 Antibody Non-Reactive 08/01/21 19:53: Chlam trachomat DNA PCR Negative, N.gonorrhoeae DNA (PCR) Negative, Group B Strep DNA Negative, Specimen Comment Not Reportable 08/01/21 21:00: Urine Color Yellow, Urine Clarity Sl. Cloudy, Urine pH 6.0, Ur Specific [place] 1.020, Urine Protein Negative, Urine Glucose (UA) Normal, Urine Ketones 150 A*, Urine Occult Blood 250 H, Urine Nitrite Negative, Urine Bilirubin Negative, Urine Urobilinogen Normal, Ur Leukocyte Esterase Negative, Urine RBC 25-50 SEEN, Urine WBC 0 SEEN, Ur Squamous Epith Cells 0-5 SEEN, Amorphous Sediment 1+ URATE, Urine Bacteria 0 SEEN, Urine Mucus 0 SEEN 08/01/21 21:00: Urine Opiates Screen NEGATIVE, Urine Methadone Screen NEGATIVE, Ur Barbiturates Screen NEGATIVE, Ur Phencyclidine Scrn NEGATIVE, Ur Amphetamines Screen NEGATIVE, U Methamphetamin-MDMA NEGATIVE, U Benzodiazepines Scrn NEGATIVE, Urine Cocaine Screen NEGATIVE, U Cannabinoids Screen NEGATIVE, Ur Drug Screen Comment Micro: Microbiology 08/01/21 19:45 Nasal Secretion SARS-CoV-2 Antigen (Rapid) - Final ROS Constitutional Constitutional: Denies fever(s) Cardiovascular Cardiovascular: Denies chest pain, dyspnea or lightheadedness Gastrointestinal Gastrointestinal: Reports abdominal pain; Denies constipation or diarrhea Neurologic Neurologic: Denies dizziness or headache(s) Physical Exam Const alert, oriented x3, no apparent distress, average body habitus, healthy appearing and well nourished HEENT normocephalic Head and Scalp: atraumatic Eyes PERRL and EOMs intact bilaterally Neck full ROM Lymph Lymphatic: no lymphadenopathy noted Resp normal respiratory effort, no retractions and no use of accessory muscles Cardio regular rate GI soft to palpation, non-tender and non-distended Palpation: other Other Details: fundus firm Extremity normal to inspection and no clubbing, cyanosis or edema Skin no rashes or lesions noted Neuro no focal motor deficits and no sensory deficits noted Psych mental status grossly normal, affect normal and speech normal Assessment & Plan (1) (vaginal after ): PLAN: s/p PPD # 1 1. routine post delivery care 2. breast feeding- support given 3. rh positive 4. rubella immune
--- NOTE | 2021-08-02 13:07 | NURSING ---
1200 discharge instructions given for mother and ; pt verbalizes understanding; pt waiting for ride home ETA 1300
--- NOTE | 2021-08-02 13:33 | NURSING ---
1330 dc to home; placed in car seat per parents; infant and maternal bracelet numbers match
[2021-08-03 08:23] LABS: Rubella IgG Reactive (Nonreactive); Syphilis Antibodies Non-reactive
== END 2021-08-02 13:30 | disposition left against medical advice (07) | DRG 807 ==
LOC: WPOUT 19:06 → WP 19:06
PROVIDERS: Admitting Provider Obstetrics & Gynecology; Visit Provider Obstetrics & Gynecology
DX: O34.219 Maternal care for unspecified type scar from previous cesarean delivery (principal); Z37.0 Single live birth; Z3A.37 37 weeks gestation of pregnancy; O42.92 Full-term premature rupture of membranes, unspecified as to length of time between rupture and onset of labor; O70.1 Second degree perineal laceration during delivery
CPT/HCPCS: 59025; 59050; 80307; 81001; 84112; 85025; 86703; 86762; 86780; 86803; 86850; 86900; 86901; 87081; 87340; 87426; 87491; 87591; 87653; 99218; J7120; A4216; G0378

== ENCOUNTER 2024-06-02 13:17 | Outpatient (CLI) | payer OTHER, SELFPAY ==
[2024-06-02 13:30] VITALS: BMI 37.0
[2024-06-02 13:34] VITALS: RESP 16; TEMP 36.8
[2024-06-02 13:36] VITALS: BP 136/86; PULSE 98
[2024-06-02 14:06] VITALS: BP 132/88; PULSE 104
--- NOTE | 2024-06-02 14:08 | OB.TRI.HP_ITS ---
HPI - General General Date of Admission: 06/02/24 Date of Service: 06/02/24 Chief Complaint: Concern for placenta location HPI Narrative GUADALUPE DUQUE, is a 33 F who presents from home. Under the care of a lay out maker. Had a few contractions last night and some bleeding with wiping this am. Now just a small amount with wiping. No pain. No more painful contractions. Manufacturing Management Associate said she was 3 cm. She has had no US this . Manufacturing Management Associate concerned for low lying placenta or previa. Hx of x 2 two after c/s for breech. Maternal Data Information Final TITI: 06/26/24 Final TITI Source: LMP Gestational age: 36+4 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 Date Name GA/Weeks Outcome Route Bth Weight Infant Gen Labor Lgth Anesthesia Del Locatn Provider FOB Unknown 07/2013 Pattie 21 live - Male [facility] Unknown 12/2014- Ruddy 36 live - 5 pounds 10oz Female spinal [facility] Unknown 09/2016- [place] 38 live - full term 6pounds 14oz Female epidural [place] 06/01/19 38 live - full term Male epidur al [facility] 08/01/21 Timur 37 live - full term Male spinal [facility] Dr. Payne Delivery Date: Last Updated by: Sandra Britton demise Delivery Date: Last Updated by: Sandra Britton Breech; progesterone injections Delivery Date: Last Updated by: Sandra Britton Progesterone injections Delivery Date: 06/01/19 Last Updated by: Sandra Britton 2 degree laceration; uncomplicated delivery ROS Constitutional Constitutional: Denies fatigue, fever(s) or malaise Cardiovascular Cardiovascular: Denies chest pain, dyspnea or lightheadedness Respiratory/Chest Respiratory/Chest: Denies cough or dyspnea Gastrointestinal Gastrointestinal: Denies change in bowel habits Genitourinary Genitourinary: Denies burning urination or genital lesions Neurologic Neurologic: Denies confusion, dizziness, headache(s), numbness or weakness Physical Exam Narrative Bedside US demonstrated vtx fetus and a fundal placenta. Subjective normal amniotic fluid Const alert and no apparent distress General Appearance: cooperative HEENT normocephalic Resp normal respiratory effort Cardio regular rate GI soft to palpation GI Narrative: gravid, nontender, appropriate for gestational age Extremity no calf tenderness General Extremity: edema Skin no wounds Rashes: No rashes noted Psych activity/motor behavior normal NST FHR Rate Baby A Baseline: 120 Variability:: Moderate Accelerations:: 15 x 15 Decelerations:: None NST Reactive:: Yes FHR Category:: Category I Uterine Activity:: occasional ctx Assessment & Plan (1) 36 weeks gestation of : (2) History of delivery: COMMENT: planning TOLAC (3) Uterine contractions: (4) Vaginal bleeding during , antepartum:
== END 2024-06-02 14:10 | disposition home or self-care (01) ==
LOC: WPOUT 13:21 → WP 13:21
PROVIDERS: Visit Provider Obstetrics & Gynecology
DX: O47.03 False labor before 37 completed weeks of gestation, third trimester (principal); Z3A.36 36 weeks gestation of pregnancy; O46.93 Antepartum hemorrhage, unspecified, third trimester
CPT/HCPCS: 59025; 59050; 99221; G0378